=== PATIENT | female | born 1970 | race Caucasian/White ===

== ENCOUNTER 2018-07-29 00:45 | Emergency (ER) | payer OTHER, MEDICAID, SELFPAY ==
[2018-07-29 00:59] VITALS: BP 117/73; PULSE 83; RESP 14; TEMP 36.7; O2SAT 100; BMI 18.6
--- NOTE | 2018-07-29 01:10 | DI.CT.S_ITS ---
PROCEDURE: CT HEAD/BRAIN WO CON INDICATIONS: GLF, syncope head lac TECHNIQUE: Noncontrast 4.5 mm thick angled axial sections acquired from the foramen magnum to the vertex, with coronal and sagittal reformats. For radiation dose reduction, the following was used: automated exposure control, adjustment of mA and/or kV according to patient size. COMPARISON: None. FINDINGS: Image quality: Excellent. CSF spaces: Basal cisterns are patent. No extra-axial fluid collections. Ventricles are normal in size and shape. Brain: No midline shift. No intracranial masses or hemorrhage. David-white matter interface is normal. Skull and face: Calvarium and visualized facial bones are intact, without suspicious lesions. Sinuses: Visualized sinuses and mastoids are clear. IMPRESSION: No acute intracranial process. Mild left frontoparietal scalp hematoma. Dictated by: Shamar Juarez M.D. on 07/29/2018 at 7:04 Approved by: Shamar Juarez M.D. on 07/29/2018 at 7:06
--- NOTE | 2018-07-29 01:11 | DI.RAD.S_ITS ---
PROCEDURE: XR CHEST 1V INDICATIONS: syncope, GLF TECHNIQUE: One view of the chest was acquired. COMPARISON: None. FINDINGS: Surgical changes and devices: None. Lungs and pleura: No pleural effusions or pneumothorax. Lungs are clear. Mediastinum: Mediastinal contours appear normal. Heart size is normal. Bones and chest wall: No suspicious bony lesions. Overlying soft tissues appear unremarkable. IMPRESSION: No acute disease Dictated by: Shamar Juarez M.D. on 07/29/2018 at 8:52 Approved by: Shamar Juarez M.D. on 07/29/2018 at 8:55
--- NOTE | 2018-07-29 01:19 | ED_ITS ---
HPI - Syncope General Chief Complaint: Syncope Stated Complaint: fall hit left side of head, cut head Time Seen by Provider: 07/29/18 00:56 Source: patient and other (friend at bedside) Mode of arrival: ambulatory Limitations: other (hx TBI, no other limitations) History of Present Illness HPI narrative: This is a 47-year-old female comes to the emergency department with complaint of syncope versus seizure activity. Patient was at home with a friend about 45 min prior to arrival. She was in the kitchen standing when her friend noticed that she sort of went down slowly onto the floor and then he heard a thump. He states that she regained consciousness almost immediately but seemed a little bit confused for a minute or 2. She then later after high consciousness had 2 episodes of involuntary movement. She has a history of what she describes as seizure disorder where she has involuntary movements usually while she is sleeping she will wake up have these movements that she cannot control for short period of time in the stop. She states it does not normally happen while she is awake during the day. Patient states she has seen a neurologist and they did not put her on medication feel that she needed any treatment. She does have a history of a traumatic brain injury and relates these seizures or involuntary movements to this. She has mild headache. She denies any vision changes. No neck or back pain. No chest pain or shortness of breath. No other injuries. No nausea or vomiting only currently. No GI or urinary symptoms. She did have a double marijuana earlier in the evening although she states she does have those occasionally. She denies any recent alcohol use and does not normally drink alcohol. She feels like she is getting back to her baseline. Related Data Home Medications Medication Instructions Recorded Confirmed No Known Home Medications 07/29/18 07/29/18 Allergies Allergy/AdvReac Type Severity Reaction Status Date / Time gluten Allergy Severe Abdominal Verified 07/29/18 01:05 Pain Sulfa (Sulfonamide Allergy Verified 07/29/18 01:04 Antibiotics) Review of Systems Review of Systems All systems reviewed & are unremarkable except as noted in HPI and below Constitutional Denies chills, Denies fever(s) and Reports headache(s) Eyes Denies change in vision ENT Ears, Nose, Mouth, and Throat: Reports headache(s) and Denies neck pain Cardiovascular Denies chest pain, Denies diaphoresis, Reports syncope, Denies irregular heart rhythm, Denies lightheadedness, Denies palpitations, Denies dyspnea and Denies orthopnea Respiratory Denies chest congestion, Denies cough and Denies dyspnea Gastrointestinal Gastrointestinal: Denies abdominal pain, Denies change in bowel habits, Denies diarrhea, Denies nausea and Denies vomiting Genitourinary Denies urinary frequency, Denies urinary hesitancy and Denies urinary urgency Musculoskeletal Denies back pain, Denies muscle weakness, Denies neck pain and Denies numbness Integumentary/Breasts Reports bleeding lesions (right scalp) Neurologic Reports abnormal movements (involuntary movements), Reports syncope, Reports headache(s) and Denies numbness Endocrine Denies palpitations PFSH Medical History Celiac disease (Acute) Seizures (Acute) TBI (traumatic brain injury) (Acute) Social History Smoking Status: Never smoker substance use type: marijuana Exam Narrative Exam Narrative: GEN: well nourished, well appearing female, alert and oriented x 3, patient appears to be in mild distress. HEENT: patient has 0.5cm laceration to scalp, pupils are equal round reactive to light, extraocular movements are intact, nares are clear, TMs are clear with no fluid, there is no conjunctival pallor. Throat is clear without any exudates , erythema, tonsillar enlargement or uvular deviation, no facial droop, normal speech. HEART: Regular rate and rhythm without murmur, clicks, rubs. LUNGS:Lungs clear to auscultation, no wheezes, rales, crackles, chest moves symmetrically ABD:bowel sounds normal, soft, non-tender, no guarding, rebound, rigidity, no masses noted, no hepatosplenomegaly BACK: No cervical, thoracic or lumbar vertebral point tenderness. Patient has normal range of motion. Muscle strength is 5/5 in lower extremities, DTRs are 3 /4 upper and lower extremities. Sensation is intact in all four extremities. MSCL: Non-tender, no muscle atrophy, muscles strength 5/5 upper and lower extremities, full range of motion, normal gait NEURO:CN 2-12 intact, sensation normal, reflexes 2/4 upper and lower extremities. finger nose finger test normal, heel otoole test normal, romberg normal Initial Vital Signs Initial Vital Signs: Vital Signs Temperature 98.1 F 07/29/18 00:59 Pulse Rate 83 07/29/18 00:59 Respiratory Rate 14 07/29/18 00:59 Blood Pressure 117/73 07/29/18 00:59 Pulse Oximetry 100 07/29/18 00:59 Scores GCS Norman coma scale eye opening: Spontaneous [place] coma scale verbal response: Orientated [place] coma scale motor response: Obey commands [place] coma scale total score: 15 Course Orders Ordered: ED Orders 07/29/18 01:09 EKG-12 Lead Stat 07/29/18 01:10 CT head/brain wo con Stat 07/29/18 01:11 XR chest 1V Stat 07/29/18 02:00 Complete Blood Count AUTO DIFF Stat Comprehensive Metabolic Panel Stat Troponin & CK Cardiac Panel Stat Discontinued Medications Diphtheria/Tetanus/Acell Pertussis (Adacel) 0.5 ml IM .ONCE ONE Stop: 07/29/18 01:10 Sodium Chloride (Normal Saline 0.9%) 1,000 mls @ 1,000 mls/hr IV BOLUS ONE Stop: 07/29/18 02:08 Vital Signs - 8 hr 07/29/18 00:59 Temperature 98.1 F Pulse Rate 83 Respiratory Rate 14 Blood Pressure 117/73 Pulse Oximetry 100 MDM - Syncope Lab Data Attestation: I reviewed the patient's lab results. Result diagrams: 07/29/18 02:00 07/29/18 02:00 Lab Results 07/29/18 07/29/18 Range/Units 02:00 02:00 WBC 8.1 (4.5-11.0) X10^3/uL RBC 4.68 (4.0-5.2) X10^6/uL Hgb 14.2 (12.0-16.0) g/dL Hct 41.7 (36-46) % MCV 89.1 (80-100) fL MCH 30.3 (26-34) PG MCHC 34.0 (30-36) % RDW 14.1 (11.6-14.8) % Plt Count 254 (150-400) X10^3/uL Neut % (Auto) 67.4 (50-75) % Lymph % (Auto) 17.8 L (25-40) % [place] % (Auto) 6.4 (3-14) % Eos % (Auto) 7.0 H (2-4) % Baso % (Auto) 1.4 (0-2) % Neut # (Auto) 5500 (3710-5999) /uL Sodium 139 (137-145) mmol/L Potassium 4.0 (3.4-5.1) mmol/L Chloride 103 (98-107) mmol/L Carbon Dioxide 27 (22-32) mmol/L BUN 11 (7-17) mg/dL Creatinine 0.80 (0.52-1.04) mg/dL Estimated GFR > 60.0 (>60) mL/min BUN/Creatinine Ratio 13.8 (6-22) Glucose 125 H (70-100) mg/dL Calcium 8.6 (8.4-10.2) mg/dL Total Bilirubin 0.4 (0.2-1.3) mg/dL AST 12 L (14-36) IU/L ALT 22 (9-52) IU/L Alkaline Phosphatase 41 (38-126) U/L Total Creatine Kinase 54 (30-135) U/L CK-MB (CK-2) TNP CK-MB (CK-2) Rel Index TNP Troponin I < 0.012 (0.01-0.034) ng/mL Total Protein 6.4 (6.3-8.2) g/dL Albumin 3.9 (3.5-5.0) g/dL Globulin 2.5 (1.7-4.1) g/dL Albumin/Globulin Ratio 1.6 (1.0-2.8) Point of Care Testing Test Results Negative Glucose POC 111 Urine Dip Bedside Urine Glucose Negative Bedside Urine Bilirubin - Negative Bedside Urine Ketone - Negative Urine Specific Parker 1.015 Bedside Urine Occult Blood - Negative Bedside Urine pH 6.0 Bedside Urine Protein - Negative Bedside Urine Urobilinogen - Negative Bedside Urine Nitrite - Negative Bedside Urine Leukocytes - Negative Esterase Imaging Data CT scan - head: Radiologist's impression: No acute intercranial process is identified. Lateral left parietal scalp hematoma. Chest x-ray: Attestation: I personally reviewed and interpreted this imaging study as follows: My impression: No infiltrate, no atelectasis noted. No pneumothorax. Mediastinum does not appear widened. No fractures. No acute process ECG Data Attestation: I personally reviewed and interpreted this ECG as follows: Interpretation: Sinus rhythm review 23-year-old daughter is 40 QTC of 411. Left anterior fascicular block. MDM Narrative Medical decision making narrative: Suspect patient may have had a syncopal episode. She may have had a seizure or 1 of her involuntary movement issues although that does not normally happen when she is awake and moving around. She did have an had double marijuana this evening which may have contributed. Patient has a hematoma and a very small punctate scalp laceration. She has a negative head CT, chest x-ray shows no acute process. Lab work does not show any major changes. Urine is negative. Discussed with patient that this may be syncope vs seizure or other cause. Plan for follow up and recheck with pcp. Discharge Plan Departure Patient Disposition: Home Clinical Impression: Syncope Instructions: DI for Syncope in Adults (Fainting) Activity Restrictions/Additional Instructions: Follow up in the next 24-48 hr with primary care. Call for an appointment. Make sure your drinking plenty of fluids, make sure your getting plenty of sleep. Avoid any intoxicants or alcohol. Return to the emergency department for fevers greater than 100.4, recurrent passing out, seizure activity or other losses of consciousness. Any chest pain shortness of breath or new persistent vomiting or other new or concerning symptoms. Prescriptions: No Action No Known Home Medications RF: 0
[2018-07-29] MEDS: SODIUM CHLORIDE 0.9% 1,000 ML 1000 ML IV (01:40)
[2018-07-29 01:45] VITALS: BP 110/73; PULSE 81; RESP 18; O2SAT 100
[2018-07-29 02:05] LABS: Add Manual Diff / Slide Review NO; Basophils Percent Auto 1.4 % (0-2); Hematocrit 41.7 % (36-46); Hemoglobin 14.2 g/dL (12.0-16.0); Lymphocytes Percent Auto 17.8 % (25-40); Mean Corpuscular Hemoglobin 30.3 PG (26-34); Mean Corpuscular Volume 89.1 fL (80-100); Monocytes Percent Auto 6.4 % (3-14); Neutrophils Absolute Auto 5500 /uL (3000-5900); Neutrophils Percent Auto 67.4 % (50-75); Platelet Count 254 X10^3/uL (150-400); Red Blood Cell Count 4.68 X10^6/uL (4.0-5.2); Red Cell Distribution Width 14.1 % (11.6-14.8); White Blood Cell Count 8.1 X10^3/uL (4.5-11.0)
[2018-07-29 02:15] LABS: Alanine Aminotransferase 22 IU/L (9-52); Albumin 3.9 g/dL (3.5-5.0); Albumin Globulin Ratio 1.6 (1.0-2.8); Alkaline Phosphatase 41 U/L (38-126); Aspartate Aminotransferase 12 IU/L (14-36); BUN Creatinine Ratio 13.8 (6-22); Bilirubin Total 0.4 mg/dL (0.2-1.3); Blood Urea Nitrogen 11 mg/dL (7-17); Calcium 8.6 mg/dL (8.4-10.2); Carbon Dioxide 27 mmol/L (22-32); Chloride 103 mmol/L (98-107); Creatine Kinase 54 U/L (30-135); Estimated Glomerular Filt Rate > 60.0 mL/min (>60); Globulin 2.5 g/dL (1.7-4.1); Glucose 125 mg/dL (70-100); HEMOLYSIS < 15 (0-50); Sodium 139 mmol/L (137-145); Total Protein 6.4 g/dL (6.3-8.2)
[2018-07-29 02:27] LABS: Troponin I < 0.012 ng/mL (0.01-0.034)
[2018-07-29 02:30] VITALS: BP 116/74; PULSE 80; RESP 14; O2SAT 100
[2018-07-29 03:22] VITALS: BP 100/79; PULSE 80; RESP 13; O2SAT 100
--- NOTE | 2018-07-29 03:23 | PC.NURSE ---
Pt given medication information from tdap box to review. Pt is not sure she wants the tdap. provider discussed risk/benefit of tdap. pt refused tdap. provider infromed pt she has 72 hours to recieve tdap if she changes her mind.
== END 2018-07-29 03:31 | disposition home or self-care (01) ==
PROVIDERS: Emergency Provider Emergency Medicine
DX: R55 Syncope and collapse (principal); W18.30XA Fall on same level, unspecified, initial encounter
CPT/HCPCS: 36591; 70450; 71045; 80053; 81003; 81025; 82550; 82962; 84484; 85025; 93005; 93010; 96360; 99283; 99285